=== PATIENT | female | born 1990 | race Asian ===

== ENCOUNTER 2016-07-15 04:35 | Inpatient (IN) | payer OTHER ==
[2016-07-14 04:40] VITALS: BP 109/56
[2016-07-15] VITALS (42 sets, daily range): BP systolic 94–118; BP diastolic 53–81
[~2016-07-15] VITALS: Ht 152.4 cm; Wt 60.8 kg
[2016-07-15] MEDS ORDERED: D5 LR IV SOLUTION 1,000 ML IV SCH (04:49)
[2016-07-15] MEDS ORDERED: MINERAL OIL CONCENTRATE 99.9% 15 ML UDC TOP PRN (05:00)
[2016-07-15] MEDS ORDERED: SUFENTA 0.6MCG/ML BUPIVA 0.125 100 ML ONE (05:04)
[2016-07-15 05:15] LABS: BASOPHILS % (AUTO) 0 % (0-10); EOSINOPHILS # (AUTO) 0.1 10^3/uL (0.0-0.3); EOSINOPHILS % (AUTO) 1 % (0-10); LYMPHOCYTES # (AUTO) 2.7 X 10^3 (1.0-4.0); LYMPHOCYTES % (AUTO) 28 % (12-44); MEAN CORPUSCULAR HEMOGLOBIN 28 PG (25-34); MEAN CORPUSCULAR HGB CONC 33 G/DL (32-36); MEAN CORPUSCULAR VOLUME 85 FL (80-99); MONOCYTES # (AUTO) 0.9 X 10^3 (0.0-1.0); MONOCYTES % (AUTO) 9 % (0-12); NEUTROPHILS # (AUTO) 5.9 X 10^3 (1.8-7.8); NEUTROPHILS % (AUTO) 61 % (42-75); PLATELET COUNT 258 10^3/uL (130-400); RED BLOOD COUNT 4.04 10^6/uL (4.35-5.85); RED CELL DISTRIBUTION WIDTH 15.9 % (10.0-14.5); WHITE BLOOD COUNT 9.6 10^3/uL (4.3-11.0)
[2016-07-15] MEDS ORDERED: BUPIVACAINE 0.25% 30 ML (SENSORCAINE) VIAL ONE (05:32)
[2016-07-15] MEDS ORDERED: CATHETER FLUSH 10 ML SYR IV SCH ×2 (06:00→14:00)
[2016-07-15] MEDS ORDERED: LACTATED RINGERS 1,000 ML IV ONE (06:10)
[2016-07-15] MEDS ORDERED: EPIDURAL (SUFENTA 0.6MCG/ML BUPIVA 0.125%) 100 ML BAG EPI SCH (06:15)
[2016-07-15] MEDS ORDERED: BUPIVACAINE 0.25% 30 ML (SENSORCAINE) VIAL INJ ONE (06:15)
[2016-07-15] MEDS ORDERED: ONDANSETRON 4 MG/2 ML (SDV) Z0FRAN IV PRN (06:15)
[2016-07-15] MEDS ORDERED: NALOXONE 0.4 MG/ML 1 ML (NARCAN) VIAL IV PRN (06:15)
[2016-07-15] MEDS ORDERED: OXYTOCIN/NORMAL SALINE 500 ML IV ONE (08:24)
[2016-07-15] MEDS ORDERED: OXYTOCIN/NORMAL SALINE 500 ML IV SCH ×2 (08:24→13:44)
--- NOTE | 2016-07-15 08:33 | History & Physical-OB ---
OB - Chief Complaint & HPI Date Date of Admission: Date of Admission: July 15, 2016 at 04:45 Chief Complaint/History Hx : 1 Hx Para: 0 Expected Date of Delivery: July 28, 2016 Gestational Age in Weeks: 38 Gestational Age in Days: 1 Other reason for admission: 25 y/o G1 @ 38w1d here with SROM, active labor. Had large gush of clear fluid at 0300 this morning. Now has epidural and is comfortable. CTX q3-5 mins. No VB. c/b consanguity, declined genetic screening, anemia on iron. History of Labs O+ Antibody neg RI Hep B neg RPR NR HIV neg GC/CT neg/neg GBS neg Allergies and Home Medications Allergies Coded Allergies: No Known Drug Allergies (Unverified , 07/15/16) Home Medications No Active Prescriptions or Reported Meds OB - History Hx of Present Care: Yes Ultrasounds: Normal mid trimester US Obstetrical Complications: Other (anemia on iron) Information Induced Hypertension: No Maternal Gestational Diabetes: No Hemorrhage: No Obstetrical History Hx : 1 Hx Para: 0 Hx Total # of Abortions (Spona: 0 Patient Past Medical History non-contributory Social History/Family History HIV/AIDS: No Recent Infectious Disease Expo: No Sexually Transmitted Disease: No Alcohol Use: Denies Use Recreational Drug Use: No Immunizations Tetanus Booster (TDap): Less than 5yrs Rubella: immune RPR/VDRL: Negative GBS Status: Negative HBsAG: Negative OB - Admission Exam Physical Exam Vitals: Vital Signs 07/15/16 07/15/16 04:40 06:50 Temp 98.2 Pulse 95 Resp 16 B/P (MAP) 101/60 Pulse Ox 98 HEENT: NCAT Heart: Rhythm Normal Lungs: Clear Abdomen: Gravid Extremities: Normal Reflexes: Normal Cervical Dilatation: 6cm Effacement: 100% Station: -1 Membranes: Ruptured Amniotic Fluid: Clear Heart Rate: 140's Accelerations: Accelerations Present Decelerations: No Decelerations Short Term Variability: Present Contractions on Admission: < 5 Minutes Apart Labs Laboratory Tests Test 07/15/16 04:55 Range/Units White Blood Count 9.6 4.3-11.0 10^3/uL Red Blood Count 4.04 L 4.35-5.85 10^6/uL Hemoglobin 11.2 L 11.5-16.0 G/DL Hematocrit 34 L 35-52 % Mean Corpuscular Volume 85 80-99 FL Mean Corpuscular Hemoglobin 28 25-34 PG Mean Corpuscular Hemoglobin Concent 33 32-36 G/DL Red Cell Distribution Width 15.9 H 10.0-14.5 % Platelet Count 258 130-400 10^3/uL Mean Platelet Volume 11.0 H 7.4-10.4 FL Neutrophils (%) (Auto) 61 42-75 % Lymphocytes (%) (Auto) 28 12-44 % Monocytes (%) (Auto) 9 0-12 % Eosinophils (%) (Auto) 1 0-10 % Basophils (%) (Auto) 0 0-10 % Neutrophils # (Auto) 5.9 1.8-7.8 X 10^3 Lymphocytes # (Auto) 2.7 1.0-4.0 X 10^3 Monocytes # (Auto) 0.9 0.0-1.0 X 10^3 Eosinophils # (Auto) 0.1 0.0-0.3 10^3/uL Basophils # (Auto) 0.0 0.0-0.1 10^3/uL OB - Assessment/Plan/Diagnosis Plan Other Plan 25 y/o G1 @ 38w1d here with SROM, active labor. GBS neg Rh+ RI Consanguity, declined genetic screening Anemia on iron Start pitocin for augmentation of labor (has only changed from 5cm to 6cm over last 5 hours), contractions likely inadequate ASVD Dr. Dhaval JIMÉNEZ,BLANKA Germain MD July 15, 2016 08:33
[2016-07-15] MEDS ORDERED: LIDOCAINE/EPI 1%-1:200,000 (XYLOCAINE) 30 ML VIAL ONE (10:16)
--- NOTE | 2016-07-15 12:59 | OB Labor & Delivery Record ---
Vag Delivery Note Vag Delivery Note Date of Delivery: 07/15/16 Preoperative Diagnosis: Danika Villarreal is a 25 y/o G1 @ 38w1d with active labor , SROM, GBS neg, consanguity, anemia on iron Postoperative Diagnosis: Same Surgeon: Blanka White MD Anesthesia: Epidural Delivery Type: Spontaneous vaginal delivery Findings: Viable female infant, apgars 7/9, weight 8lb3oz Lacerations: Third degree perineal laceration (3a) Intact placenta with 3 vessel cord. No nuchal cord, body cord or shoulder dystocia Estimated Blood Loss: 400 ml Complications: None Condition: Stable Description of Procedure: The patient is a 25 y/o G1 @ 38w1d who presented in active labor with SROM; she was managed expectantly by Dr. Alan and had an epidural placed. She was admitted and informed consent was obtained. I took over her care this morning. Her labor course was remarkable for pitocin for augmentation of labor once she had been 5-6cm for 5 hours. She then progressed to complete dilatation and began to push. She was then set up for delivery. The infant's head was delivered atraumatically in the occiput atnerior position. The shoulders and remainder of the infant's body were then delivered without difficulty. Upon delivery, the head was held below the level of the perineum and the mouth and nares were bulb suctioned. The cord was doubly clamped and cut after a 30-60 second pause and the was on her mother's chest. An intact placenta with 3-vessel cord delivered via Michaela and there was found to be minimal bleeding. Vigorous fundal massage was performed and the fundus was found to be firm. IV oxytocin was given. Examination of the vagina and perineum revealed a partial third degree (3a) laceration with a small abrasion over the external anal sphincter; this was reinforced with 2-0 Vicryl suture and the remainder of the laceration was repaired in the usual fashion with 3-0 vicryl suture. Following the repair, sponge, instrument and needle counts were correct. Mom and baby were both in stable condition in the labor suite. Vitals - Labs Vital Signs - I&O Vital Signs Date Time Temp Pulse Resp B/P (MAP) Pulse Ox O2 Delivery O2 Flow Rate FiO2 07/15/16 10:45 81 18 101/64 07/15/16 10:30 98 18 114/76 07/15/16 10:15 89 18 111/75 07/15/16 10:00 85 18 111/75 07/15/16 09:45 83 18 113/77 07/15/16 09:30 73 18 109/73 07/15/16 09:15 73 18 107/60 07/15/16 09:00 78 18 109/67 07/15/16 08:45 85 18 105/56 07/15/16 08:30 92 16 110/68 07/15/16 08:15 88 16 103/63 99 07/15/16 08:00 81 16 106/62 99 07/15/16 07:45 91 16 108/58 98 07/15/16 07:30 97 16 102/61 98 07/15/16 07:15 97.9 92 16 102/61 99 07/15/16 06:50 95 16 101/60 98 07/15/16 06:35 91 16 98/58 97 07/15/16 06:20 90 16 108/56 99 07/15/16 06:15 96 18 109/69 98 07/15/16 06:10 95 57 99/58 98 07/15/16 06:05 93 18 109/58 95 07/15/16 06:00 105 20 107/56 95 07/15/16 05:55 103 57 105/57 95 07/15/16 05:50 110 20 104/58 95 07/15/16 05:40 107 20 111/73 95 07/15/16 05:25 102 18 106/67 07/15/16 05:10 98 18 105/65 07/15/16 04:55 107 18 102/64 07/15/16 04:40 98.2 106 20 109/56 I & O 07/15/16 07:00 Intake Total 1000 ml Balance 1000 ml Labs Laboratory Tests 07/15/16 04:55: White Blood Count 9.6, Red Blood Count 4.04L, Hemoglobin 11.2L, Hematocrit 34L, Mean Corpuscular Volume 85, Mean Corpuscular Hemoglobin 28, Mean Corpuscular Hemoglobin Concent 33, Red Cell Distribution Width 15.9H, Platelet Count 258, Mean Platelet Volume 11.0H, Neutrophils (%) (Auto) 61, Lymphocytes (%) (Auto) 28 , Monocytes (%) (Auto) 9, Eosinophils (%) (Auto) 1, Basophils (%) (Auto) 0, Neutrophils # (Auto) 5.9, Lymphocytes # (Auto) 2.7, Monocytes # (Auto) 0.9, Eosinophils # (Auto) 0.1, Basophils # (Auto) 0.0 BLANKA WHITE MD July 15, 2016 12:59
[2016-07-15] MEDS: HYDROcodone/APAP 5 MG/325 MG (LORTAB) TAB PO PRN (14:46)
[2016-07-15] MEDS: IBUPROFEN 600 MG (MOTRIN) TAB PO SCH ×2 (14:46→21:29)
[2016-07-15] MEDS: WITCH HAZEL(TUCKS) 40 EA JAR TOP PRN (14:47)
[2016-07-15] MEDS: BENZOCAINE/MENTHOL (DERMOPLAST) 56 ML CAN TP PRN (14:47)
[2016-07-15] MEDS: DOCUSATE SODIUM 100 MG (COLACE) CAP PO SCH (21:29)
[2016-07-16] MEDS: HYDROcodone/APAP 5 MG/325 MG (LORTAB) TAB PO PRN ×2 (00:01→13:54)
[2016-07-16 01:12] VITALS: BP 90/51
[2016-07-16] MEDS: IBUPROFEN 600 MG (MOTRIN) TAB PO SCH ×4 (03:13→23:05)
[2016-07-16 05:15] VITALS: BP 86/59
[2016-07-16 05:48] LABS: BASOPHILS % (AUTO) 0 % (0-10); EOSINOPHILS # (AUTO) 0.1 10^3/uL (0.0-0.3); EOSINOPHILS % (AUTO) 1 % (0-10); LYMPHOCYTES # (AUTO) 2.6 X 10^3 (1.0-4.0); LYMPHOCYTES % (AUTO) 25 % (12-44); MEAN CORPUSCULAR HEMOGLOBIN 28 PG (25-34); MEAN CORPUSCULAR HGB CONC 32 G/DL (32-36); MEAN CORPUSCULAR VOLUME 87 FL (80-99); MEAN PLATELET VOLUME 10.8 FL (7.4-10.4); MONOCYTES # (AUTO) 0.8 X 10^3 (0.0-1.0); MONOCYTES % (AUTO) 7 % (0-12); NEUTROPHILS # (AUTO) 7.2 X 10^3 (1.8-7.8); NEUTROPHILS % (AUTO) 67 % (42-75); PLATELET COUNT 203 10^3/uL (130-400); RED CELL DISTRIBUTION WIDTH 16.3 % (10.0-14.5); WHITE BLOOD COUNT 10.8 10^3/uL (4.3-11.0)
[2016-07-16] MEDS ORDERED: MILK OF MAGNESIA 400 MG/5 ML 30 ML UDC PO NR (08:00)
--- NOTE | 2016-07-16 09:18 | Progress Note-Standard ---
Standard Progress Note Progress Notes/Assess & Plan Progress/Assessment & Plan Patient doing well without complaint. Lochia light. Vital Sign - Last 24 Hours 07/15/16 07/15/16 07/15/16 07/15/16 09:30 09:45 10:00 10:15 Pulse 73 83 85 89 Resp 18 18 18 18 B/P (MAP) 109/73 113/77 111/75 111/75 07/15/16 07/15/16 07/15/16 07/15/16 10:30 10:45 11:00 11:15 Pulse 98 81 88 100 Resp 18 18 18 18 B/P (MAP) 114/76 101/64 111/56 112/81 07/15/16 07/15/16 07/15/16 07/15/16 11:30 11:45 12:00 12:15 Pulse 90 96 109 Resp 18 18 18 18 B/P (MAP) 115/68 118/73 111/53 07/15/16 07/15/16 07/15/16 07/15/16 12:30 12:34 12:48 13:03 Pulse 96 100 97 Resp 18 18 18 18 B/P (MAP) 104/56 101/59 109/65 O2 Flow Rate 10.00 07/15/16 07/15/16 07/15/16 07/15/16 13:18 14:00 14:25 17:16 Temp 97.8 Pulse 96 106 88 100 Resp 18 18 18 20 B/P (MAP) 114/58 100/57 96/60 94/54 07/15/16 07/16/16 07/16/16 21:18 01:12 05:15 Temp 99.0 97.0 97.8 Pulse 71 82 79 Resp 18 18 18 B/P (MAP) 97/64 90/51 86/59 Pulse Ox 96 98 100 Intake and Output 07/15/16 07/15/16 07/16/16 15:00 23:00 07:00 Intake Total 2000 ml Balance 2000 ml Laboratory Tests Test 07/16/16 05:31 Range/Units White Blood Count 10.8 4.3-11.0 10^3/uL Red Blood Count 3.50 L 4.35-5.85 10^6/uL Hemoglobin 9.7 L 11.5-16.0 G/DL Hematocrit 31 L 35-52 % Mean Corpuscular Volume 87 80-99 FL Mean Corpuscular Hemoglobin 28 25-34 PG Mean Corpuscular Hemoglobin Concent 32 32-36 G/DL Red Cell Distribution Width 16.3 H 10.0-14.5 % Platelet Count 203 130-400 10^3/uL Mean Platelet Volume 10.8 H 7.4-10.4 FL Neutrophils (%) (Auto) 67 42-75 % Lymphocytes (%) (Auto) 25 12-44 % Monocytes (%) (Auto) 7 0-12 % Eosinophils (%) (Auto) 1 0-10 % Basophils (%) (Auto) 0 0-10 % Neutrophils # (Auto) 7.2 1.8-7.8 X 10^3 Lymphocytes # (Auto) 2.6 1.0-4.0 X 10^3 Monocytes # (Auto) 0.8 0.0-1.0 X 10^3 Eosinophils # (Auto) 0.1 0.0-0.3 10^3/uL Basophils # (Auto) 0.0 0.0-0.1 10^3/uL Uterine fundus firm and below umbilicus per RN Diagnosis: PPD 1 NVD P: Routine PP care Anticipate dc tomorrow MENDY GOMEZ DO July 16, 2016 9:18 am
[2016-07-16 09:30] VITALS: BP 91/61
[2016-07-16] MEDS: DOCUSATE SODIUM 100 MG (COLACE) CAP PO SCH ×2 (09:30→20:01)
[2016-07-16] MEDS: FERROUS SULF 325 MG (IRON) TAB PO SCH (09:30)
[2016-07-16] MEDS: PRENATAL VITAMIN 1 EA TAB PO SCH (09:30)
--- NOTE | 2016-07-16 11:33 | Anesthesia-Regional Post-Op ---
Regional Patient Condition Mental Status: Alert, Oriented x3 Circulation: Same as Pre-Op Headache: Absent Sensation: Full Recovery Motor Block: Absent Post Op Complications Complications None Follow Up Care/Instructions Patient Instructions None needed. Anesthesia/Patient Condition Patient is doing well, no complaints, stable vital signs, no apparent adverse anesthesia problems. No complications reported per nursing. SADA BENJAMIN CRNA July 16, 2016 11:33
[2016-07-16 13:40] VITALS: BP 93/60
[2016-07-16] MEDS ORDERED: FERR-74 PO (17:07)
[2016-07-16] MEDS ORDERED: IBUP-1773 PO (17:07)
[2016-07-16] MEDS ORDERED: DOCU100C37 PO (17:07)
[2016-07-16] MEDS ORDERED: HYDR-3812 PO (17:07)
--- NOTE | 2016-07-16 17:08 | Discharge Inst-Women's Service ---
Discharge Inst-Women's Serv Depart Medication/Instructions New, Converted or Re-Newed RX: RX on Chart Final Diagnosis TIUP, active labor, Consults/Follow Up Additional Follow Up: Yes Orders/Referrals [address] White Activity Activity: Activity as Tolerated Driving Instructions: You May Drive (unless taking narcotic pain medications) NO SMOKING: NO SMOKING Nothing Inside Vagina: No Douching, No [place], No Tampons Diet Discharge Diet: No Restrictions Symptoms to Report to : Bleeding Excessive, Pain Increased, Constipation( Persistant), Fever Over 101 Degrees F, Pain/Pressure in Chest, Vaginal Bleeding Increase, Dizziness/Fainting, Nausea/Vomiting, Shortness of Breath For Any Problems or Questions: Contact Your Physician BLANKA WHITE MD July 16, 2016 17:08
[2016-07-16 17:30] VITALS: BP 99/61
[2016-07-16 23:05] VITALS: BP 94/63
[2016-07-17] MEDS: IBUPROFEN 600 MG (MOTRIN) TAB PO SCH ×2 (05:11→13:09)
[2016-07-17 05:18] VITALS: BP 93/68
--- NOTE | 2016-07-17 08:24 | Postpartum Progress Note ---
Note Note Day # 2 Subjective: Patient is without complaints other than LE edema and has not defecated. Ambulating, voiding. Tolerating a regular diet without nausea or vomiting. Normal lochia. Pain is well controlled with oral pain medications. Breast feeding. Objective: VS - Last 72 Hours, by Label 07/15/16 07/15/16 07/15/16 07/15/16 04:40 04:55 05:10 05:25 Temp 98.2 Pulse 106 107 98 102 Resp 20 18 18 18 B/P (MAP) 109/56 102/64 105/65 106/67 07/15/16 07/15/16 07/15/16 07/15/16 05:40 05:50 05:55 06:00 Pulse 107 110 103 105 Resp 20 20 57 20 B/P (MAP) 111/73 104/58 105/57 107/56 Pulse Ox 95 95 95 95 07/15/16 07/15/16 07/15/16 07/15/16 06:05 06:10 06:15 06:20 Pulse 93 95 96 90 Resp 18 57 18 16 B/P (MAP) 109/58 99/58 109/69 108/56 Pulse Ox 95 98 98 99 07/15/17 //17 5//17 5 06:35 06:50 07:15 07:30 Temp 97.9 Pulse 91 95 92 97 Resp 16 16 16 16 B/P (MAP) 98/58 101/60 102/61 102/61 Pulse Ox 97 98 99 98 07/15/1607/15/17 07//17 07/15/16 07:45 08:00 08:15 08:30 Pulse 91 81 88 92 Resp 16 16 16 16 B/P (MAP) 108/58 106/62 103/63 110/68 Pulse Ox 98 99 99 07/15/17 07//17 //17 07/15/16 08:45 09:00 09:15 09:30 Pulse 85 78 73 73 Resp 18 18 18 18 B/P (MAP) 105/56 109/67 107/60 109/73 07/15/17 5/17 5//17 5/ 09:45 10:00 10:15 10:30 Pulse 83 85 89 98 Resp 18 18 18 18 B/P (MAP) 113/77 111/75 111/75 114/76 07/15/17 //17 07//07/15/16 10:45 11:00 11:15 11:30 Pulse 81 88 100 90 Resp 18 18 18 18 B/P (MAP) 101/64 111/56 112/81 115/68 07/15/07/15/07/15/16 07/15/16 11:45 12:00 12:15 12:30 Pulse 96 109 Resp 18 18 18 18 B/P (MAP) 118/73 111/53 O2 Flow Rate 10.00 07/15/16 07/15/16 07/15/16 07/15/16 12:34 12:48 13:03 13:18 Pulse 96 100 97 96 Resp 18 18 18 18 B/P (MAP) 104/56 101/59 109/65 114/58 07/15/07/15/07/15/07/15/16 14:00 14:25 17:16 21:18 Temp 97.8 99.0 Pulse 106 88 100 71 Resp 18 18 20 18 B/P (MAP) 100/57 96/60 94/54 97/64 Pulse Ox 96 /16/17 /16/17 //17 07/16/ 01:12 05:15 09:30 13:40 Temp 97.0 97.8 99.0 98.7 Pulse 82 79 87 99 Resp 18 18 18 16 B/P (MAP) 90/51 86/59 91/61 93/60 Pulse Ox 98 100 100 99 16/17 07/16/17 07/17/17 17:30 23:05 05:18 Temp 98.8 97.9 97.0 Pulse 80 84 74 Resp 18 18 20 B/P (MAP) 99/61 94/63 93/68 Pulse Ox 98 98 99 Physical Exam: General - Alert and oriented, no apparent distress Abdomen - Soft, appropriately tender to palpation, non-distended, fundus firm at umbilicus Extremities - 1+ pitting bilat LE edema to mid tibia, negative Hola's bilaterally Assessment: 25 y/o post- day # 2, status post spontaneous vaginal delivery. Recovering well, hemodynamically stable Acute blood loss anemia Hgb 9.7 Plan: Routine care. Encourage breast feeding. Encourage ambulation. Ferrous sulfate supplementation. Plan for discharge today, f/u with me in 3 weeks (pt is leaving the country in 4 weeks) Vitals - Labs Vital Signs - I&O Vital Signs Date Time Temp Pulse Resp B/P (MAP) Pulse Ox O2 Delivery O2 Flow Rate FiO2 07/17/16 05:18 97.0 74 20 93/68 99 07/16/16 23:05 97.9 84 18 94/63 98 07/16/16 17:30 98.8 80 18 99/61 98 07/16/16 13:40 98.7 99 16 93/60 99 07/16/16 09:30 99.0 87 18 91/61 100 BLANKA JIMÉNEZ MD July 17, 2016 08:24
[2016-07-17 09:00] VITALS: BP 94/57
[2016-07-17] MEDS: PRENATAL VITAMIN 1 EA TAB PO SCH (09:04)
[2016-07-17] MEDS: FERROUS SULF 325 MG (IRON) TAB PO SCH (09:04)
[2016-07-17] MEDS: DOCUSATE SODIUM 100 MG (COLACE) CAP PO SCH (09:04)
[2016-07-17] MEDS: HYDROcodone/APAP 5 MG/325 MG (LORTAB) TAB PO PRN (09:19)
[2016-07-17] MEDS: BENZOCAINE/MENTHOL (DERMOPLAST) 56 ML CAN TP PRN (09:28)
[2016-07-17] MEDS: WITCH HAZEL(TUCKS) 40 EA JAR TOP PRN (09:28)
[2016-07-17 14:00] VITALS: BP 100/65
[2016-07-17 16:30] VITALS: BP 100/65
== END 2016-07-17 16:30 | disposition home or self-care (01) | DRG 775 ==
LOC: WSo 04:35 → LDRP 04:35 → WSo 04:45 → LDRP 14:44
PROVIDERS: ADMIT Obstetrics & Gynecology; ATTEND Obstetrics & Gynecology
PROC: 0DQR0ZZ Repair Anal Sphincter, Open Approach (ICD-10-PCS; principal; 2016-07-15)
PROC: 0KQM0ZZ Repair Perineum Muscle, Open Approach (ICD-10-PCS; 2016-07-15)
PROC: 10E0XZZ Delivery of Products of Conception, External Approach (ICD-10-PCS; 2016-07-15)
DX: O99.02 Anemia complicating childbirth (principal); O70.21 Third degree perineal laceration during delivery, IIIa; D64.9 Anemia, unspecified; Z3A.38 38 weeks gestation of pregnancy; Z37.0 Single live birth
CPT/HCPCS: 36415; 85025; 86850; 86900; 86901; 99212

== ENCOUNTER → 2016-12-16 | Outpatient (CLI) | payer OTHER ==
[~2016-12-16] MED LIST: DOCU100C37 PO; FERR-74 PO; HYDR-3812 PO; IBUP-1773 PO
--- NOTE | 2016-12-16 11:28 | Diagnostic Imaging Report ---
Three views of the cervical spine. INDICATION: Neck pain. FINDINGS: There is straightening of the lordotic curvature may relate to muscle spasm. The vertebral body heights are preserved. The disc heights are also preserved. Alignment at the posterior spinal line is satisfactory. There is satisfactory alignment of the lateral masses of C1 and C2 as well. The paraspinal soft tissues appear unremarkable. IMPRESSION: Straightening of the lordotic curvature of the cervical spine may relate to muscle spasm. Dictated by: Dictated on workstation # [id number]
--- NOTE | 2016-12-16 11:30 | Diagnostic Imaging Report ---
3 views of the thoracic spine. INDICATION: Back pain. FINDINGS: The alignment of the posterior spinal line is satisfactory. The vertebral body heights are preserved. Disc heights are also preserved. No significant osteophyte formation or degenerative changes noted. The paraspinous soft tissues appear unremarkable. IMPRESSION: Unremarkable exam. Dictated by: Dictated on workstation # [id number]
== END ==
LOC: RAD 10:41
PROVIDERS: ATTEND Family Medicine
DX: M54.2 Cervicalgia (principal)
CPT/HCPCS: 72040; 72072

== ENCOUNTER 2017-06-15 12:48 | Emergency (ER) | payer OTHER ==
[~2017-06-15] VITALS: Ht 144.8 cm; Wt 49.0 kg
[~2017-06-15 12:48] MED LIST changes: +ACHD5005 PO; -FERR-74 PO; +FERR325T18 PO; -HYDR-3812 PO
[2017-06-15] MEDS ORDERED: KETOROLAC 30 MG/ML VIAL IVP ONE (13:00)
--- NOTE | 2017-06-15 13:06 | ED Chest Pain ---
General Stated Complaint: CHEST PAIN Source: patient Exam Limitations: no limitations History of Present Illness Date Seen by Provider: Jun 15, 2017 Time Seen by Provider: 13:01 Initial Comments This 26-year-old white female presents with a history of chest pain that began 24 hours ago. The patient relates that the chest pain occurs when she attempts to hold her [id number] child. She has chest pain in the left chest shoulder neck and upper back. There is no associated numbness or tingling in the left upper extremity. Patient denies injury to the left chest or left upper extremity. Patient's pain is sharp in nature moderate in severity, and made worse by weightbearing with left upper extremity. The patient denies associated shortness of breath, hemoptysis, palpitations, nausea, vomiting, diaphoresis, fever or chills, stiff neck, headache, or photophobia. Patient's past medical history is essentially noncontributory. Patient has had no surgeries other than a minor surgery to her nose. She is taking only a limited amount of rcjk-ekn-xyxnogh medications. She is under the care of Dr. BURNETT. Allergies and Home Medications Allergies Coded Allergies: No Known Drug Allergies (Unverified , 07/15/16) Patient Home Medication List Home Medication List Reviewed: Yes Review of Systems Constitutional: No chills, No fever EENTM: No Throat Pain Respiratory: Denies Cough, Denies Shortness of Air Cardiovascular: Chest Pain; Denies Irregular Heart Rate, Denies Palpitations Gastrointestinal: Denies Abdominal Pain, Denies Nausea, Denies Vomiting Genitourinary: Denies Frequency, Denies Urgency Musculoskeletal: back pain (the patient's left sided chest pain also involves the left upper back shoulder and neck.), joint pain (left shoulder), neck pain Skin: No rash Psychiatric/Neurological: No Symptoms Reported Endocrine: No Symptoms Reported Hematologic/Lymphatic: No Symptoms Reported Past Vymrfdh-Qpvnmn-Vtvsom Hx Past Med/Social Hx: Reviewed Nursing Past Med/Soc Hx Patient Social History Recent Foreign Travel: No Contact w/Someone Who Travel: No Recent Hopitalizations: No Immunizations Up To Date Tetanus Booster (TDap): Less than 5yrs Seasonal Allergies Seasonal Allergies: No Past Medical History Surgeries: No Respiratory: No Currently Using CPAP: No Currently Using BIPAP: No Cardiac: No Neurological: No Female Reproductive Disorders: Denies Sexually Transmitted Disease: No HIV/AIDS: No Genitourinary: No Gastrointestinal: No Musculoskeletal: No Endocrine: No HEENT: No Cancer: No Psychosocial: No Integumentary: No Blood Disorders: No Family Medical History Patient reports no known family medical history. Physical Exam Vital Signs Vital Signs - First Documented 06/15/17 12:50 Temp 98.0 Pulse 84 Resp 20 B/P (MAP) 106/78 (87) Pulse Ox 99 O2 Delivery Room Air Capillary Refill : General Appearance: No Apparent Distress, WD/WN HEENT: Normal ENT Inspection Neck: Normal Inspection Respiratory: Chest Non Tender, Lungs Clear, Normal Breath Sounds Cardiovascular: Regular Rate, Rhythm, No Murmur Gastrointestinal: Normal Bowel Sounds Extremity: Normal Inspection, Normal Range of Motion, Other (there is pain with movement of the left shoulder. No crepitus or instability was noted) Neurologic/Psychiatric: Alert, Oriented x3, No Motor/Sensory Deficits, Normal Mood/Affect Skin: Normal Color, Warm/Dry Progress/Results/Core Measures Lab Results Laboratory Tests Test 06/15/17 13:11 06/15/17 13:21 Range/Units White Blood Count 5.0 4.3-11.0 10^3/uL Red Blood Count 5.04 4.35-5.85 10^6/uL Hemoglobin 14.3 11.5-16.0 G/DL Hematocrit 42 35-52 % Mean Corpuscular Volume 83 80-99 FL Mean Corpuscular Hemoglobin 28 25-34 PG Mean Corpuscular Hemoglobin Concent 34 32-36 G/DL Red Cell Distribution Width 13.7 10.0-14.5 % Platelet Count 299 130-400 10^3/uL Mean Platelet Volume 10.3 7.4-10.4 FL Neutrophils (%) (Auto) 50 42-75 % Lymphocytes (%) (Auto) 41 12-44 % Monocytes (%) (Auto) 6 0-12 % Eosinophils (%) (Auto) 2 0-10 % Basophils (%) (Auto) 1 0-10 % Neutrophils # (Auto) 2.5 1.8-7.8 X 10^3 Lymphocytes # (Auto) 2.0 1.0-4.0 X 10^3 Monocytes # (Auto) 0.3 0.0-1.0 X 10^3 Eosinophils # (Auto) 0.1 0.0-0.3 10^3/uL Basophils # (Auto) 0.0 0.0-0.1 10^3/uL Erythrocyte Sedimentation Rate 8 0-20 MM/HR Sodium Level 138 135-145 MMOL/L Potassium Level 3.8 3.6-5.0 MMOL/L Chloride Level 106 98-107 MMOL/L Carbon Dioxide Level 22 21-32 MMOL/L Anion Gap 10 5-14 MMOL/L Blood Urea Nitrogen 9 7-18 MG/DL Creatinine 0.68 0.60-1.30 MG/DL Estimat Glomerular Filtration Rate > 60 BUN/Creatinine Ratio 13 Glucose Level 93 70-105 MG/DL Calcium Level 8.9 8.5-10.1 MG/DL Total Bilirubin 0.6 0.1-1.0 MG/DL Aspartate Amino Transf (AST/SGOT) 17 5-34 U/L Alanine Aminotransferase (ALT/SGPT) 10 0-55 U/L Alkaline Phosphatase 64 40-136 U/L Troponin I < 0.30 <0.30 NG/ML Total Protein 7.2 6.4-8.2 GM/DL Albumin 4.2 3.2-4.5 GM/DL D-Dimer 0.28 0.00-0.49 UG/ML My Orders Orders - DIOGO, LOUIS House MD Cbc With Automated Diff (06/15/17 12:58) Chest 1 View, Ap/Pa Only (06/15/17 12:58) Ekg Tracing (06/15/17 12:58) Cardiac Profile 1 (06/15/17 12:58) Comprehensive Metabolic Panel (06/15/17 12:58) Monitor-Rhythm Ecg Trace Only (06/15/17 12:58) Saline Lock/Iv-Start (06/15/17 12:58) Ketorolac Injection (Toradol Injection) (06/15/17 13:00) Erythrocyte Sedimentation Rate (06/15/17 13:09) Fibrin Degradation Products (06/15/17 13:09) Medications Given in ED Current Medications Medications Dose Ordered Sig/Henry Route Start Time Stop Time Status Last Admin Dose Admin Ketorolac Tromethamine 30 mg ONCE ONCE IVP 06/15/17 13:00 06/15/17 13:01 DC 06/15/17 13:19 30 MG Vital Signs/I&O 06/15/17 12:50 Temp 98.0 Pulse 84 Resp 20 B/P (MAP) 106/78 (87) Pulse Ox 99 O2 Delivery Room Air Progress Note : Time: 14:14 Progress Note The patient's pain was significantly improved with 30 mg Toradol IV. Patient's laboratory evaluation including d-dimer and troponin were unremarkable. Her EKG demonstrated borderline low voltage sinus rhythm and no acute current of injury. Patient's chest x-ray was unremarkable. I discussed findings with the patient. Recommend that we continue with oral Toradol as needed for the next 5 days and I gave her a prescription for Flexeril for muscle spasm. Moist heat was recommended which is used in the past for similar muscle spasm episodes. I recommended that she follow-up closely with her physician early next week. I invited her to return the emergency Department for any problems or questions Departure Impression Primary Impression: Muscle spasm Disposition: 01 HOME, SELF-CARE Condition: Improved Departure-Patient Inst. Decision time for Depature: 14:18 Referrals: LAUREN BURNETT DO (PCP/Family) Primary Care Physician Patient Instructions: Chest Pain That Is Not Caused by the Heart (DC) Add. Discharge Instructions: Toradol and Flexeril as prescribed for pain and spasm. Moist heating pads to areas of discomfort. Close follow-up with Dr. BURNETT for further evaluation. Call her office in the morning. Return if any problems or questions. LOUIS LIND MD Jun 15, 2017 13:06
[2017-06-15 13:18] LABS: BASOPHILS % (AUTO) 1 % (0-10); EOSINOPHILS # (AUTO) 0.1 10^3/uL (0.0-0.3); EOSINOPHILS % (AUTO) 2 % (0-10); HEMATOCRIT 42 % (35-52); HEMOGLOBIN 14.3 G/DL (11.5-16.0); LYMPHOCYTES % (AUTO) 41 % (12-44); MEAN CORPUSCULAR HEMOGLOBIN 28 PG (25-34); MEAN CORPUSCULAR HGB CONC 34 G/DL (32-36); MEAN CORPUSCULAR VOLUME 83 FL (80-99); MEAN PLATELET VOLUME 10.3 FL (7.4-10.4); MONOCYTES # (AUTO) 0.3 X 10^3 (0.0-1.0); MONOCYTES % (AUTO) 6 % (0-12); NEUTROPHILS # (AUTO) 2.5 X 10^3 (1.8-7.8); NEUTROPHILS % (AUTO) 50 % (42-75); PLATELET COUNT 299 10^3/uL (130-400); RED BLOOD COUNT 5.04 10^6/uL (4.35-5.85); RED CELL DISTRIBUTION WIDTH 13.7 % (10.0-14.5)
[2017-06-15 13:36] LABS: ALANINE AMINOTRANSFERASE 10 U/L (0-55); ALBUMIN 4.2 GM/DL (3.2-4.5); ALKALINE PHOSPHATASE 64 U/L (40-136); BILIRUBIN,TOTAL 0.6 MG/DL (0.1-1.0); BUN/CREATININE RATIO 13; CALCIUM 8.9 MG/DL (8.5-10.1); CARBON DIOXIDE 22 MMOL/L (21-32); CHLORIDE 106 MMOL/L (98-107); CREATININE SERUM 0.68 MG/DL (0.60-1.30); GFR ESTIMATED > 60; GLUCOSE 93 MG/DL (70-105); POTASSIUM 3.8 MMOL/L (3.6-5.0); SODIUM 138 MMOL/L (135-145); TOTAL PROTEIN 7.2 GM/DL (6.4-8.2)
--- NOTE | 2017-06-15 13:51 | Diagnostic Imaging Report ---
EXAMINATION: Chest radiograph, portable AP view. DATE: 06/15/2017 at 1331 hours. INDICATION: 26-year-old female, left-sided chest pain. COMPARISON: None. FINDINGS: Heart size and mediastinal contours are unremarkable. There is no identified pneumothorax. There is no large pleural effusion. There is no identified focal airspace consolidation. IMPRESSION: No identified acute cardiopulmonary abnormality. Dictated by: Dictated on workstation # [id number]
[2017-06-15 14:35] VITALS: BP 107/74
== END 2017-06-15 14:35 | disposition home or self-care (01) ==
LOC: EDUNIT# 12:48 → ER 12:50
DX: M62.838 Other muscle spasm (principal)
CPT/HCPCS: 36415; 71045; 80053; 84484; 85025; 85379; 85652; 93005; 93041; 96374